=== PATIENT | female | born 1950 | race Caucasian/White ===

== ENCOUNTER 2016-10-22 05:43 | Day surgery (SDC) | payer MEDICARE ==
--- NOTE | ~2016-10-22 | EGD ---
EGD REPORT [facility] [address] [place]. [address] NAME: KRISTIE JOHN : [birth year] STATUS : REG [facility]#: [id number] AGE: 66 ADM/REG DATE : 10/22/16 MR#: [id number] REPORT SERV DATE: 10/22/16 DICTATED BY: TRAVON ALLEN DATE: 10/22/16 REPORT STATUS : Draft TRANSCRIBED BY: [employer] DATE: 10/22/16 [facility] Patient Name: Kristie John Date of : 1950 Attending MD: TRAVON ALLEN, Procedure Date No Time: 10/22/2016 Procedure: Colonoscopy Indications: Iron deficiency anemia Referring MD: Fani MAKI Medicines: Monitored Anesthesia Care Complications: No immediate complications. Estimated blood loss: None. Procedure: Pre-Anesthesia Assessment: - ASA Grade Assessment: III - A patient with severe systemic disease. After I obtained informed consent, the scope was passed under direct vision. Throughout the procedure, the patient's blood pressure, pulse, and oxygen saturations were monitored continuously. The CF [id number] was introduced through the anus and advanced to the cecum, identified by appendiceal orifice and ileocecal valve. The colonoscopy was performed without difficulty. The patient tolerated the procedure well. The quality of the bowel preparation was good. Findings: The perianal and digital rectal examinations were normal. Internal hemorrhoids were found during retroflexion and were Grade I (internal hemorrhoids that do not prolapse). A few small-mouthed diverticula were found in the sigmoid colon. A sessile polyp was found in the transverse colon. The polyp was 1 mm in size. The polyp was removed with a cold biopsy forceps. Resection and retrieval were complete. Verification of patient identification for the specimen was done. Estimated blood loss was minimal. The exam was otherwise without abnormality on direct and retroflexion views. Impression: - Internal hemorrhoids. - Diverticulosis in the sigmoid colon. - One 1 mm polyp in the transverse colon. Resected and retrieved. - The examination was otherwise normal on direct and retroflexion views. Recommendation: - Patient has a contact number available for emergencies. The signs and symptoms of potential delayed EGD REPORT [address] [address] NAME: KRISTIE JOHN : [birth year] STATUS : REG [facility] [place] PAT#: [id number] AGE: 66 ADM/REG DATE : 10/22/16 MR#: [id number] REPORT SERV DATE: 10/22/16 DICTATED BY: TRAVON ALLEN DATE: 10/22/16 REPORT STATUS : Draft TRANSCRIBED BY: [facility] DATE: 10/22/16 complications were discussed with the patient. Return to normal activities tomorrow. Written discharge instructions were provided to the patient. - Return to previous diet. - Continue present medications. - Repeat colonoscopy for surveillance based on pathology results. Procedure Code(s): --- Professional --- 19205, Colonoscopy, flexible, proximal to splenic flexure; with biopsy, single or multiple Diagnosis Code(s): --- Professional --- K64.0, First degree hemorrhoids K57.30, Diverticulosis of large intestine without perforation or abscess without bleeding D12.3, Benign neoplasm of transverse colon D50.9, Iron deficiency anemia, unspecified CPT copyright 2013 [employer]. All rights reserved. The codes documented in this report are preliminary and upon subsorter review may be revised to meet current compliance requirements. TRAVON ALLEN, 10/22/2016 8:35 AM Number of Addenda: 0 Note Initiated On: 10/22/2016 7:55 AM Scope Withdrawal Time 0 hours 12 minutes 37 seconds [address] [place] [address]
--- NOTE | ~2016-10-22 | EGD ---
EGD REPORT [facility] [address] [address] NAME: KRISTIE JOHN : [birth year] STATUS : REG [facility]#: [id number] AGE: 66 ADM/REG DATE : 10/22/16 MR#: [id number] REPORT SERV DATE: 10/22/16 DICTATED BY: TRAVON ALLEN DATE: 10/22/16 REPORT STATUS : Draft TRANSCRIBED BY: [employer] DATE: 10/22/16 [facility] Center Patient Name: Kristie John Date of : 1950 Attending MD: TRVAON ALLEN, Procedure Date No Time: 10/22/2016 Procedure: Upper GI endoscopy Indications: Iron deficiency anemia Referring MD: Fani MAKI Medicines: Monitored Anesthesia Care Complications: No immediate complications. Estimated blood loss: None. Procedure: Pre-Anesthesia Assessment: - ASA Grade Assessment: III - A patient with severe systemic disease. After obtaining informed consent, the endoscope was passed under direct vision. Throughout the procedure, the patient's blood pressure, pulse, and oxygen saturations were monitored continuously. The GIF [id number] was introduced through the mouth, and advanced to the second part of duodenum. The upper GI endoscopy was accomplished without difficulty. The patient tolerated the procedure well. Findings: The esophagus was normal. A single 12 mm sessile polyp with no stigmata of recent bleeding was found in the gastric body. The polyp was removed with a hot snare. Resection and retrieval were complete. Verification of patient identification for the specimen was done. Estimated blood loss was minimal. Patchy mild inflammation characterized by erythema was found in the entire examined stomach. Biopsies were taken with a cold forceps for histology. Verification of patient identification for the specimen was done. Estimated blood loss was minimal. The cardia and gastric fundus were normal on retroflexion. The examined duodenum was normal. Biopsies were taken with a cold forceps for histology. Verification of patient identification for the specimen was done. Estimated blood loss was minimal. Impression: - Normal esophagus. - A single gastric polyp. Resected and retrieved. - Gastritis. Biopsied. - Normal examined duodenum. Biopsied. Recommendation: - Patient has a contact number available for EGD REPORT [address] [address] NAME: KRISTIE JOHN : [birth year] STATUS : REG [facility] PAT#: [id number] AGE: 66 ADM/REG DATE : 10/22/16 MR#: [id number] REPORT SERV DATE: 10/22/16 DICTATED BY: TRAVON ALLEN DATE: 10/22/16 REPORT STATUS : Draft TRANSCRIBED BY: [employer] DATE: 10/22/16 emergencies. The signs and symptoms of potential delayed complications were discussed with the patient. Return to normal activities tomorrow. Written discharge instructions were provided to the patient. - Return to previous diet. - Continue present medications. - Await pathology results. Procedure Code(s): --- Professional --- 57403, Esophagogastroduodenoscopy, flexible, transoral; with removal of tumor(s), polyp(s), or other lesion(s) by snare technique 68099, 59, Esophagogastroduodenoscopy, flexible, transoral; with biopsy, single or multiple Diagnosis Code(s): --- Professional --- K31.7, Polyp of stomach and duodenum K29.70, Gastritis, unspecified, without bleeding D50.9, Iron deficiency anemia, unspecified CPT copyright 2013 [employer]. All rights reserved. The codes documented in this report are preliminary and upon supervisory training specialist review may be revised to meet current compliance requirements. TRAVON ALLEN, 10/22/2016 8:33 AM Number of Addenda: 0 Note Initiated On: 10/22/2016 8:01 AM Scope Withdrawal Time 0 hours 0 minutes 0 seconds [address] [place] [address]
[~2016-10-22 05:43] MED LIST: COREG12 PO; CYMBALTA60 PO; CYTO25 PO; DIOVAN HCT320 MG/25 PO; ELIQUIS 5 MG TAB5 MG PO; FERROUS SULF325 M1 PO; GLUCOPHAGE1000 MG PO; GLUCXL5 PO; KDUR20 PO; LOFIB160 PO; PRILO PO; VITAMIN B-121000 MC1 SL; VITAMIN D2000 UNIT PO; VITC500 PO
== END 2016-10-22 23:59 | disposition home or self-care (01) ==
LOC: DMU 05:43
PROVIDERS: Internal Medicine Gastroenterology
PROC: 0DBL8ZZ Excision of Transverse Colon, Via Natural or Artificial Opening Endoscopic (ICD-10-PCS; principal; 2016-10-22 07:00)
DX: D12.3 Benign neoplasm of transverse colon (principal); K29.50 Unspecified chronic gastritis without bleeding; K31.7 Polyp of stomach and duodenum; K64.0 First degree hemorrhoids; K57.30 Diverticulosis of large intestine without perforation or abscess without bleeding; D50.9 Iron deficiency anemia, unspecified; I48.0 Paroxysmal atrial fibrillation; I10 Essential (primary) hypertension; E11.9 Type 2 diabetes mellitus without complications; G47.33 Obstructive sleep apnea (adult) (pediatric); Z79.899 Other long term (current) drug therapy; Z79.84 Long term (current) use of oral hypoglycemic drugs; Z79.890 Hormone replacement therapy
CPT/HCPCS: 82962; 88305